=== PATIENT | female | born 1970 | race Caucasian/White ===

== ENCOUNTER → 2018-06-05 | Outpatient (CLI) | payer MEDICAID | END | disposition home or self-care (01) | LOC: PCVCCLINIC 14:21 | PROVIDERS: ATTEND Internal Medicine | DX: I42.9 Cardiomyopathy, unspecified (principal); R00.2 Palpitations; E78.5 Hyperlipidemia, unspecified; J43.9 Emphysema, unspecified; J98.4 Other disorders of lung; I10 Essential (primary) hypertension; I25.2 Old myocardial infarction; F17.210 Nicotine dependence, cigarettes, uncomplicated; Z88.8 Allergy status to other drugs, medicaments and biological substances; Z79.899 Other long term (current) drug therapy; Z79.82 Long term (current) use of aspirin | CPT/HCPCS: 36415; 80061; 93005; G0463 ==

== ENCOUNTER → 2018-06-27 | Outpatient (CLI) | payer MEDICAID ==
[~2018-06-27] MED LIST: PERFLUTREN PROTEIN-A MICROSPHR 0.22 MG/ML 3 ML VIAL. IV ONE
--- NOTE | 2018-06-27 11:36 | PCVCIMAG ---
APPROVED REPORT Study performed: 06/27/2018 10:01:56 EXAM: Comprehensive 2D, Doppler, and color-flow Echocardiogram Patient Location: Echo lab Status: routine BSA: 1.67 HR: 99 bpmBP: 119/81 mmHg Rhythm: Tachycardia Other Information Study Quality: Adequate Technically limited study due to lung disease. Risk Factors: Cardiac Risk Factors: Smoking Indications Dyspnea Palpitations Cardiomyopathy Echo Enhancing Agent Indication: Endocardial border delineation Agent(s) / Amount(s) Used: Optison 4 cc 2D Dimensions IVSd: 7.29 (7-11mm) LVDd: 43.76 mm PWd: 7.27 (7-11mm)Ascending Ao: 33.21 (22-36mm) LVDs: 37.58 (25-40mm) Left Atrium: 28.09 (27-40mm) Aortic Root: 31.02 mm Volumes Left Atrial Volume (Systole) Single Plane 4CH: 32.38 mLSingle Plane 2CH: 29.36 mL LA ESV Index: 20.00 mL/m2 Aortic Valve AoV Peak Rocael.: 0.88 m/s AO Peak Gr.: 3.13 mmHgLVOT Max P.29 mmHg LVOT Max V: 0.57 m/s Mitral Valve IVRT: 121.11 ms Pulmonary Valve PV Peak Rocael.: 0.56 m/sPV Peak Gr.: 1.26 mmHg Tricuspid Valve TR Peak Rocael.: 2.17 m/s TR Peak Gr.: 18.84 mmHg TV Vmax: 0.48 m/s Left Ventricle The left ventricle is normal size. There is global hypokinesis of the left ventricle. There is normal left ventricular wall thickness. Left ventricular ejection fraction is severely decreased globally. LVEF is 25-30%. This study is not technically sufficient to allow evaluation of the LV diastolic function. Right Ventricle The right ventricle is normal size. The right ventricular systolic function is normal. Atria The left atrium size is normal. The right atrium size is normal. Aortic Valve The aortic valve is normal in structure. No aortic regurgitation is present. There is no aortic valvular stenosis. Mitral Valve The mitral valve is normal in structure. There is no mitral valve regurgitation noted. No evidence of mitral valve stenosis. Tricuspid Valve The tricuspid valve is normal in structure. Mild tricuspid regurgitation with PAP of 26 mmHg. Pulmonic Valve The pulmonary valve is normal in structure. There is no pulmonic valvular regurgitation. Great Vessels The aortic root is normal in size. IVC is normal in size and collapses >50% with inspiration. Pericardium There is no pericardial effusion. There is no pleural effusion. <Conclusion> Left ventricular ejection fraction is severely decreased globally. LVEF is 25-30%. The aortic valve is normal in structure. No aortic regurgitation or stenosis The mitral valve is normal in structure. No mitral valve regurgitation. Mild tricuspid regurgitation with pulmonary artery pressure of 26 mmHg. There is no pericardial effusion.
== END | disposition home or self-care (01) ==
LOC: PCVCIMAG 11:54
PROVIDERS: ATTEND Internal Medicine
DX: I07.1 Rheumatic tricuspid insufficiency (principal); R00.2 Palpitations; I42.9 Cardiomyopathy, unspecified; R06.09 Other forms of dyspnea
CPT/HCPCS: C8929; Q9956

== ENCOUNTER → 2018-12-04 | Outpatient (CLI) | payer MEDICAID ==
--- NOTE | 2018-12-04 11:18 | PCVCIMAG ---
APPROVED REPORT Study performed: 12/04/2018 09:28:13 EXAM: Comprehensive 2D, Doppler, and color-flow Echocardiogram Patient Location: Echo lab Status: routine BSA: 1.67 HR: 74 bpmBP: 118/76 mmHg Rhythm: NSR Other Information Study Quality: Adequate Indications COPD Cardiomyopathy 2D Dimensions IVSd: 5.85 (7-11mm) LVDd: 45.75 mm PWd: 5.92 (7-11mm)Ascending Ao: 31.59 (22-36mm) LVDs: 37.16 (25-40mm) Left Atrium: 22.24 (27-40mm) Aortic Root: 31.38 mm LV Single Plane 4CH: 44.77 % LV Single Plane 2CH: 34.23 % Biplane EF: 38.3 % Volumes Left Atrial Volume (Systole) Single Plane 4CH: 19.68 mLSingle Plane 2CH: 31.21 mL LA ESV Index: 16.00 mL/m2 Aortic Valve AoV Peak Rocael.: 0.94 m/s AO Peak Gr.: 3.55 mmHgLVOT Max P.83 mmHg LVOT Max V: 0.68 m/s Mitral Valve E/A Ratio: 1.0 MV Decel. Time: 246.04 ms MV E Max Rocael.: 0.41 m/s MV A Rocael.: 0.41 m/s IVRT: 107.27 ms Pulmonary Valve PV Peak Rocael.: 0.64 m/sPV Peak Gr.: 1.64 mmHg Pulmonary Vein P Vein S: 0.23 m/sP Vein A: 0.24 m/s P Vein D: 0.31 m/sP Vein A Dur.: 107.3 msec P Vein S/D Ratio: 0.74 Tricuspid Valve TR Peak Rocael.: 2.13 m/s TR Peak Gr.: 18.10 mmHg Left Ventricle The left ventricle is normal size. There is global hypokinesis of the left ventricle. There is normal left ventricular wall thickness. Left ventricular systolic function is moderate to severely decreased. LVEF is 35-40%. Mild diastolic dysfunction is present (impaired relaxation pattern). Right Ventricle The right ventricle is normal size. The right ventricular systolic function is normal. Atria The left atrium size is normal. The right atrium size is normal. Aortic Valve The aortic valve is normal in structure. No aortic regurgitation is present. There is no aortic valvular stenosis. Mitral Valve The mitral valve is normal in structure. There is no mitral valve regurgitation noted. No evidence of mitral valve stenosis. Tricuspid Valve The tricuspid valve is normal in structure. Trace tricuspid regurgitation with PAP of 25 mmHg. Pulmonic Valve The pulmonary valve is normal in structure. There is no pulmonic valvular regurgitation. Great Vessels The aortic root is normal in size. IVC is normal in size and collapses >50% with inspiration. Pericardium There is no pericardial effusion. There is no pleural effusion. <Conclusion> Left ventricular systolic function is moderate to severely decreased. There is global hypokinesis of the left ventricle. LVEF is 35-40%. Mild diastolic dysfunction The aortic valve is normal in structure. No aortic regurgitation or stenosis The mitral valve is normal in structure. No mitral valve regurgitation. Trace tricuspid regurgitation with pulmonary artery pressure of 25 mmHg. There is no pericardial effusion.
== END | disposition home or self-care (01) ==
LOC: PCVCIMAG 09:31
PROVIDERS: ATTEND Internal Medicine
DX: I42.0 Dilated cardiomyopathy (principal); J43.9 Emphysema, unspecified; E78.5 Hyperlipidemia, unspecified; Z88.1 Allergy status to other antibiotic agents
CPT/HCPCS: 93306